=== PATIENT | male | born 1995 | race Caucasian/White ===

== ENCOUNTER 2017-03-17 03:54 | Emergency (ER) | payer OTHER ==
[~2017-03-17] VITALS: Ht 172.7 cm; Wt 76.0 kg
[2017-03-17 03:58] VITALS: BP 147/96; PULSE 80; RESP 16; O2SAT 98
[2017-03-17 05:34] LABS: BASOPHILS % (AUTO) 0.4 % (0-3); EOSINOPHILS % (AUTO) 0.6 % (0-5); MONOCYTES % (AUTO) 5.7 % (4-12); Mean Corpuscular Hemoglobin 30.5 pg (27.0-35.0); Mean Corpuscular Volume 87.5 fL (81-100); NEUTROPHILS % (AUTO) 75.9 % (40-74); Platelet Count 248 bil/L (150-400)
--- NOTE | 2017-03-17 06:07 | ED.REPORT ---
HPI-Psychiatric Illness Date of Service March 17, 2017 ED Provider: Roberto Carlos Wood MD 21 y/o male with a hx of ADHD, depression, HTN and asthma presents to the ED to discuss his depression and anxiety. The pt reports he is very stressed and his depression has gradually worsened over the last 6 months. He denies suicidal ideation and homicidal ideation. As per the pt's girlfriend, the pt has a temper and has been "explosive". She brought him to the ED after they had an argument today. The pt is not currently taking any medication for depression. He has been taking Focalin for 1-2 weeks. Nursing Notes Stated Complaint: DEPRESSION Chief Complaint: Psychiatric Complaint Nursing Notes Reviewed: Yes Allergies: Coded Allergies: No Known Allergies (Unverified , 03/17/17) Scheduled Dexmethylphenidate ER (Focalin XR) 30 Mg Capsule 30 MG PO DAILY General Time Seen by MD: 05:18 Chief Complaint Depressed Hx Obtained From: Patient Arrived By: Walk-in Onset Occurred: 21 - 23 hours ago Symptom Duration: Since onset Progression Since Onset: Constant Severity: Current: No pain currently Severity: Maximum: No pain Recent Healthcare: No recent doctor visit Similar Sx Previous: Yes Risk-Psychiatric Illness Suicide Risk Stratification RF Statements: No risk factors Past Medical History Past Medical History ADHD Anxiety Reports: Asthma, Hypertension Reports: Depression Past Surgical History Gynecomastia Smoking History Unknown if Ever Smoker Ambulatory Status Independent Review of Systems Psychiatric: Reports: Anxiety, Depression, Denies: Homicidal ideation, Suicidal ideation Complete sys rev & neg: except as marked. Physical Exam Initial Vital Signs Vital Signs (First) Date Time Temp Pulse Resp B/P Pulse Ox O2 Delivery O2 Flow Rate FiO2 03/17/17 03:58 36.0 80 16 147/96 98 Room Air Initial VS: Reviewed Head / Eyes: Atraumatic, Normocephalic, PERRL ENT: Mucous membranes moist, Conjunctiva normal, No scleral icterus Neck: Supple, Non-tender, Full range of motion Respiratory: Breath sounds normal, No respiratory distress Cardiovascular: Regular rate & rhythm, Heart sounds normal, Intact distal pulses Abdomen / GI: Soft, Non-tender Extremities: Vascular intact, Neuro intact, No swelling, No tenderness Skin: Warm, Dry, No cyanosis General/Constitutional: Awake, Alert, No acute distress, Well appearing, Cooperative, Not toxic appearing Neurologic: Oriented X3, Speech NL, No motor deficits, No sensory deficits Psychiatric: Not homicidal Abnormal Mood/Affect: Positive: Depressed Pt is not suicidal. He has no plan. Pt has no previous suicide attempts. Interpretation & Diagnostics Lab Results Interpretation Result Diagram: 03/17/1723 03/17/1723 Test 03/17/17 05:15 03/17/17 05:23 Hold Urine Received (Received) White Blood Count 9.3th/mm3 (3.8-10.1) Red Blood Count 4.88mil/mm3 (4.40-5.80) Hemoglobin 14.9g/dL (13.8-17.2) Hematocrit 42.7% (41.0-50.0) Mean Corpuscular Volume 87.5fL (81-100) Mean Corpuscular Hemoglobin 30.5pg (27.0-35.0) Mean Corpuscular Hemoglobin Concent 34.9% (32.0-37.0) Red Cell Distribution Width 11.9% (12.3-15.4) Platelet Count 248bil/L (150-400) Neutrophils (%) (Auto) 75.9% (40-74) Lymphocytes (%) (Auto) 17.3% (14-46) Monocytes (%) (Auto) 5.7% (4-12) Eosinophils (%) (Auto) 0.6% (0-5) Basophils (%) (Auto) 0.4% (0-3) Sodium Level 141mEq/L (134-144) Potassium Level 4.0mEq/L (3.5-5.2) Chloride Level 103mEq/L (97-108) Carbon Dioxide Level 24mmol/L (18-29) Blood Urea Nitrogen 14mg/dL (6-20) Creatinine 0.74mg/dL (0.76-1.27) Estimat Glomerular Filtration Rate 142mL/min (>59) Glucose Level 122mg/dL (60-99) Calcium Level 9.3mg/dL (8.5-10.1) Total Bilirubin 0.3mg/dL (0.0-1.2) Aspartate Amino Transf (AST/SGOT) 18U/L (0-50) Alanine Aminotransferase (ALT/SGPT) 11U/L (0-44) Alkaline Phosphatase 58U/L (25-150) Total Protein 7.2g/dL (6.4-8.4) Albumin 4.4g/dL (3.4-5.0) Thyroid Stimulating Hormone (TSH) 2.540uIU/mL (0.450-4.500) Hold Jo Top Tube Received (Received) Re-Eval/Medical Decision Med Decision/Clinical Course Not of imminent risk of harm to himself or others. Meets discharge criteria. Return and follow-up precautions given. Source of Hx: Old records Re-Evaluation/Progress #1: Time of Eval: 06:22 Re-Evaluation/Progress Note: Rechecked pt. Informed the pt that the drug abuse social worker doesn't arrive until 10:00. Pt agrees to wait for the drug abuse social worker. Re-Evaluation/Progress #2: Time of Eval: 10:28 Re-Evaluation/Progress Note: Rechecked pt. Discussed diagnosis. Informed the pt of the plan to discharge. Pt understands and agrees with plan. F/U instructions and RTER warning given. All questions addressed. Counseled Regarding: Diagnosis, Lab results, Need for follow-up, When/why to return to ED Discharge & Departure Impression: Primary Impression: Acute situational disturbance )( Condition at Discharge: No suicidal ideation, No homicidal ideation Discharge Condition All VS Reviewed: Yes Condition: Stable Additional Instructions: You discussed your condition with the drug abuse social worker. Follow up with finding an outpatient therapist. Return to the emergency department in case of worsening anxiety, suicidal ideation or any other new or concerning symptoms. Referrals: Miri Mcintosh MD (PCP) Scribe Attestation Portions of this note were transcribed by Сергей Blanchard. I, , personally performed the history, physical exam and medical decision-making;I reviewed and confirmed the accuracy of the information in the transcribed note. Signed by Seng Sy. 03/17/17 10:30 copies to: Miri Mcintosh MD, Timothy S DO March 17, 2017 06:07 Сергей Blanchard March 17, 2017 06:18
[2017-03-17 06:55] VITALS: BP 135/87; PULSE 77; RESP 16; O2SAT 99
[2017-03-17] MEDS ORDERED: DEXM30CP PO (07:35)
[2017-03-17 11:05] VITALS: BP 135/87; PULSE 77; RESP 16; O2SAT 99
== END 2017-03-17 11:07 | disposition home or self-care (01) ==
LOC: SED 03:54
DX: F43.0 Acute stress reaction (principal); F32.9 Major depressive disorder, single episode, unspecified; F90.9 Attention-deficit hyperactivity disorder, unspecified type; I10 Essential (primary) hypertension; J45.909 Unspecified asthma, uncomplicated; F41.9 Anxiety disorder, unspecified